=== PATIENT | female | born 1960 | race Caucasian/White ===

== ENCOUNTER 2025-04-10 22:34 | Emergency (ER) | payer BC, SELFPAY ==
[2025-04-10 22:40] VITALS: BP 146/83; PULSE 82; TEMP 36.8; O2SAT 97; BMI 31.2
--- NOTE | 2025-04-10 22:56 | ED.SKABFB1 ---
HPI - Skin/Abscess/Foreign Bdy General Chief complaint: Skin/Abscess/Foreign Body Stated complaint: BUG BITE Time Seen by Provider: 04/10/25 22:42 Source: patient Mode of arrival: walk-in History of Present Illness HPI narrative: This 64-year-old female who is visiting locally from [place] and has been camping all weekend presents for evaluation of a pruritic macule to the back of her left leg. The patient states that she and her boyfriend were camping all weekend and he found 3 ticks on him. She states when she found this out she started looking around on her body and found a red, mildly erythematous area on the back of her left calf. She states it was bigger and redder this morning. She has used Benadryl cream and ice to it and the swelling has gone down. She does not have any myalgias, arthralgias or other skin rashes consistent with Lyme disease but is concerned that she has been bit by a tick. I offered her a dose of doxycycline for a potential tick bite. Related Data Home Medications ?Medication ?Instructions ?Recorded ?Confirmed acetaminophen 500 mg tablet mg 04/10/25 alprazolam 0.25 mg tablet mg 04/10/25 buprenorphine 2 mg-naloxone 0.5 mg film 04/10/25 sublingual film celecoxib 200 mg capsule mg 04/10/25 cephalexin 500 mg capsule mg 04/10/25 cyclobenzaprine 5 mg tablet mg 04/10/25 estradiol 0.05 mg/24 hr semiweekly 04/10/25 transdermal patch (Sierra) hydrochlorothiazide 12.5 mg tablet mg 04/10/25 montelukast 10 mg tablet mg 04/10/25 morphine 15 mg tablet,extended mg PO 04/10/25 release potassium chloride 10 mEq meq PO 04/10/25 tablet,extended release pregabalin 75 mg capsule mg 04/10/25 rosuvastatin 10 mg tablet mg 04/10/25 sertraline 50 mg tablet mg 04/10/25 tramadol 100 mg tablet,extended mg PO 04/10/25 release 24 hr Allergies Allergy/AdvReac Type Severity Reaction Status Date / Time nickel Allergy Intermediate Hives Verified 04/10/25 22:49 Review of Systems ROS Status of ROS 10 or more systems reviewed and unremarkable except as noted in history and below PFSH PFSH Social History Little interest or pleasure in doing things: not at all Feeling down, depressed, or hopeless: not at all Exam Narrative Exam Narrative: Vital signs and Nursing Notes reviewed: Patient is afebrile with a normal pulse, blood pressure is elevated at 146/83, she is not hypoxic with pulse ox of 97% on room air General: Awake, alert, oriented, no acute distress, lying comfortably on the stretcher HEENT: Normocephalic atraumatic, mucous membranes are moist and pink, eyes are clear, normal conjunctiva, vision is grossly intact Neck: Supple, no meningeal signs Chest: Lungs are clear to auscultation with good air entry, there is no wheezing rhonchi or rales appreciated no accessory muscle use, patient is speaking in complete sentences-no chest wall tenderness to palpation CVS: Regular rate and rhythm S1-S2, no murmurs rubs or gallops, pulses are brisk and equal bilaterally Extremities: Moving all extremities, no lower extremity tenderness or swelling noted. There is an approximately 0.5 cm erythematous macule on the back of the left mid calf. There is some mild local erythema but no induration, lymphangitic streaking or drainage. No additional skin rash or concern for tick bite noted. No erythema migrans rash. Skin: Small erythematous area in the back of the left calf as described above. No generalized skin rash, hives or other notable abnormalities. Neuro: No focal deficits Constitutional Vital Signs, click to edit/add: Last Vital Signs Temp 98.2 F 04/10/25 22:40 Pulse 82 04/10/25 22:40 Resp 16 04/10/25 22:40 BP 146/83 H 04/10/25 22:40 Pulse Ox 97 04/10/25 22:40 O2 Del Method Room Air 04/10/25 22:40 Course Vital Signs Vital signs: Vital Signs Temperature 98.2 F 04/10/25 22:40 Pulse Rate 82 04/10/25 22:40 Respiratory Rate 16 04/10/25 22:40 Blood Pressure 146/83 H 04/10/25 22:40 Pulse Oximetry 97 04/10/25 22:40 Oxygen Delivery Method Room Air 04/10/25 22:40 Temperature 98.2 F 04/10/25 22:40 Pulse Rate 82 04/10/25 22:40 Respiratory Rate 16 04/10/25 22:40 Blood Pressure 146/83 H 04/10/25 22:40 Pulse Oximetry 97 04/10/25 22:40 Oxygen Delivery Method Room Air 04/10/25 22:40 MDM - Skin/Abscess/Foreign Bdy MDM Narrative Medical decision making narrative: This 64-year-old female presents for evaluation of an erythematous macule in the back of her left calf that she is concerned was a tick. She did not see a tick but states she has been camping with her boyfriend over the weekend and he had 3 ticks on him. She does not have any generalized sign of tickborne illness or Lyme's disease. She does not have any erythema migrans rash. She has been using Benadryl and ice in the erythematous area where she was bit appears to be improving. She was offered a one-time dose of doxycycline for possibility of a tick bite prior to discharge. I encouraged her to use plenty of insect repellent when she is outside and keep herself covered in areas with high tick concentration. Discharge Plan Discharge Chief Complaint: Skin/Abscess/Foreign Body Clinical Impression: Insect bites Patient Disposition: Home, Self-Care Time of Disposition Decision: 22:56 Condition: Good Prescriptions / Home Meds: No Action acetaminophen 500 mg tablet alprazolam 0.25 mg tablet buprenorphine-naloxone 2-0.5 mg film celecoxib 200 mg capsule potassium chloride 10 mEq tablet extended release PO estradiol [Sierra] 0.05 mg/24 hr patch semiweekly cephalexin 500 mg capsule montelukast 10 mg tablet morphine 15 mg tablet extended release PO sertraline 50 mg tablet cyclobenzaprine 5 mg tablet rosuvastatin 10 mg tablet pregabalin 75 mg capsule tramadol 100 mg tablet extended release 24 hr PO hydrochlorothiazide 12.5 mg tablet Print Language: Cymro Instructions: Insect Bite or Sting (ED) Referrals: Physician,Non-Staff, MD [Primary Care Provider] - 1 week
[2025-04-10] MEDS: DOXYCYCLINE MONOHYDRATE 100 MG CAPSULE PO (23:00)
== END 2025-04-10 23:28 | disposition home or self-care (01) ==
PROVIDERS: Emergency Provider Emergency Medicine
DX: S80.862A Insect bite (nonvenomous), left lower leg, initial encounter (principal); W57.XXXA Bitten or stung by nonvenomous insect and other nonvenomous arthropods, initial encounter
CPT/HCPCS: 99283